=== PATIENT | female | born 1975 | race Two or more races ===

== ENCOUNTER 2020-05-22 14:14 | Emergency (ER) | payer OTHER ==
[~2020-05-22] VITALS: Ht 165.1 cm; Wt 72.6 kg
[2020-05-22] MEDS ORDERED: HYDMOR4 PO (16:03)
[2020-05-22] MEDS ORDERED: CALCIUM (16:04)
[2020-05-22] MEDS ORDERED: Inderal 20 mg T20 MG PO (16:04)
[2020-05-22] MEDS ORDERED: Methocarbamol500 MG PO (16:05)
[2020-05-22] MEDS ORDERED: INDO50 PO (16:05)
[2020-05-22] MEDS ORDERED: PROAIR RESPICL90 MCG IH (16:05)
[2020-05-22] MEDS ORDERED: Xanax2 MG PO (16:06)
[2020-05-22] MEDS ORDERED: Estradiol1 MG PO (16:06)
[2020-05-22] MEDS ORDERED: PROM25 PO (16:06)
[2020-05-22] MEDS ORDERED: DILT120 PO (16:08)
[2020-05-22] MEDS ORDERED: TRAM50 PO (16:08)
[2020-05-22] MEDS ORDERED: Hair, Skin & N1 EACH PO (16:08)
[2020-05-22] MEDS ORDERED: RIZATRIPTAN10 MG SL (16:08)
[2020-05-22] MEDS ORDERED: LEVSOD150 PO (16:08)
== END 2020-05-22 17:20 | disposition home or self-care (01) ==
LOC: ER 14:14
DX: S76.011A Strain of muscle, fascia and tendon of right hip, initial encounter (principal); F17.200 Nicotine dependence, unspecified, uncomplicated; Z88.0 Allergy status to penicillin; Z88.1 Allergy status to other antibiotic agents; Z79.4 Long term (current) use of insulin; Z79.899 Other long term (current) drug therapy; Z79.3 Long term (current) use of hormonal contraceptives
CPT/HCPCS: 73502; 99283-25

== ENCOUNTER → 2020-06-16 | Outpatient (CLI) | payer OTHER ==
[~2020-06-16] MED LIST: CALCIUM; DILT120 PO; Estradiol1 MG PO; HYDMOR4 PO; Hair, Skin & N1 EACH PO; INDO50 PO; Inderal 20 mg T20 MG PO; LEVSOD150 PO; Methocarbamol500 MG PO; PROAIR RESPICL90 MCG IH; PROM25 PO; RIZATRIPTAN10 MG SL; TRAM50 PO; Xanax2 MG PO
== END | disposition home or self-care (01) ==
LOC: LAB 20:05
DX: J02.9 Acute pharyngitis, unspecified (principal)
CPT/HCPCS: 87081; 87147

== ENCOUNTER 2021-12-28 13:15 | Emergency (ER) | payer OTHER ==
[~2021-12-28] VITALS: Ht 165.1 cm; Wt 74.8 kg
[2021-12-28 16:12] LABS: BASOPHILS ABSOLUTE AUTO 0.05 K/mm3 (0.00-0.23); BASOPHILS PERCENT AUTO 1 % (0-2); EOSINOPHILS ABSOLUTE AUTO 0.12 K/mm3 (0.00-0.68); EOSINOPHILS PERCENT AUTO 2 % (0-6); Hematocrit 43.4 % (33.0-51.0); Hemoglobin 14.6 g/dL (11.5-16.0); IMMATURE GRAN ABSOLUTE AUTO 0.04 K/mm3 (0.00-0.10); IMMATURE GRAN PERCENT AUTO 1 % (0-1); LYMPHOCYTES ABSOLUTE AUTO 3.25 K/mm3 (0.84-5.20); LYMPHOCYTES PERCENT AUTO 40 % (21-46); MONOCYTES ABSOLUTE AUTO 0.58 K/mm3 (0.16-1.47); MONOCYTES PERCENT AUTO 7 % (4-13); Mean Corpuscular HGB 30.7 pg (26.0-34.0); Mean Corpuscular HGB Conc 33.6 g/dL (31.5-36.5); Mean Corpuscular Volume 91 fL (80-100); NEUTROPHILS ABSOLUTE AUTO 4.16 K/mm3 (1.96-9.15); NEUTROPHILS PERCENT AUTO 51 % (41-73); RDW Coefficient Variation 12.4 % (11.7-14.2); RDW Standard Deviation 42.2 fL (35.1-46.3); Red Blood Cell Count 4.75 M/mm3 (3.80-5.20)
[2021-12-28 16:28] LABS: Magnesium, Blood 2.3 mg/dL (1.6-2.4)
[2021-12-28 16:37] LABS: Bun/Creatinine Ratio 16.9 (12.0-20.0); Calcium, Blood 9.4 mg/dL (8.5-10.1); Creatinine, Blood 0.65 mg/dL (0.40-1.00); Potassium, Blood 4.3 mmol/L (3.5-5.5); Thyroid Stimulating Hormone 0.31 uIU/mL (0.360-4.800)
[2021-12-28 16:59] LABS: Mean Platelet Volume 10.6 fL (9.1-12.4); Platelet Count 280 K/mm3 (150-400)
== END 2021-12-28 17:36 | disposition home or self-care (01) ==
LOC: ER 13:15
PROVIDERS: Emergency Medicine
DX: R55 Syncope and collapse (principal); S09.90XA Unspecified injury of head, initial encounter; S80.02XA Contusion of left knee, initial encounter; S70.02XA Contusion of left hip, initial encounter; E03.9 Hypothyroidism, unspecified; F17.200 Nicotine dependence, unspecified, uncomplicated; R00.1 Bradycardia, unspecified; W18.30XA Fall on same level, unspecified, initial encounter; Z79.899 Other long term (current) drug therapy
CPT/HCPCS: 70450; 73030; 73502; 80048; 83735; 84443; 85025; 85049; J1200; J1885; J2765

== ENCOUNTER → 2022-02-22 | Outpatient (CLI) | payer OTHER | END | disposition home or self-care (01) | LOC: LAB 08:56 → LAB SHORT 08:56 | DX: J35.1 Hypertrophy of tonsils (principal) | CPT/HCPCS: 87081 ==

== ENCOUNTER 2022-05-06 12:12 | Emergency (ER) | payer OTHER ==
[~2022-05-06] VITALS: Ht 165.1 cm; Wt 70.3 kg
[2022-05-06] MEDS ORDERED: PROM25 PO (13:57)
[2022-05-06] MEDS ORDERED: ZEBUTAL 50-3251 EAC1 PO (13:57)
== END 2022-05-06 15:22 | disposition home or self-care (01) ==
LOC: ER 12:12
DX: G43.909 Migraine, unspecified, not intractable, without status migrainosus (principal); R11.10 Vomiting, unspecified; F17.290 Nicotine dependence, other tobacco product, uncomplicated; Z79.899 Other long term (current) drug therapy
CPT/HCPCS: 96374; 96375; 99283-25; A9270; J1885; J2550; J7030

== ENCOUNTER → 2022-05-17 | Outpatient (CLI) | payer OTHER ==
[~2022-05-17] MED LIST changes: +ZEBUTAL 50-3251 EAC1 PO
== END | disposition home or self-care (01) ==
LOC: LAB SHORT 13:20 → LAB 13:20
DX: R35.0 Frequency of micturition (principal)
CPT/HCPCS: 87077; 87086; 87186

== ENCOUNTER 2022-06-04 04:27 | Emergency (ER) | payer OTHER ==
[2022-06-04] MEDS ORDERED: ZYRTEC10 M2 (05:14)
[2022-06-04] MEDS ORDERED: PANT20 (05:14)
[2022-06-04] MEDS ORDERED: 1/2 NS 250ml250 ML (05:14)
[2022-06-04] MEDS ORDERED: CIPR250 PO (06:38)
== END 2022-06-04 07:47 | disposition home or self-care (01) ==
DX: N30.91 Cystitis, unspecified with hematuria (principal); E03.9 Hypothyroidism, unspecified; F17.210 Nicotine dependence, cigarettes, uncomplicated; Z88.0 Allergy status to penicillin; Z88.2 Allergy status to sulfonamides; Z88.1 Allergy status to other antibiotic agents; Z79.899 Other long term (current) drug therapy

== ENCOUNTER 2022-06-30 06:49 | Emergency (ER) | payer OTHER ==
[~2022-06-30] VITALS: Ht 165.1 cm; Wt 78.0 kg
[~2022-06-30 06:49] MED LIST changes: +1/2 NS 250ml250 ML; +CIPR250 PO; +PANT20; +ZYRTEC10 M2
[2022-06-30] MEDS ORDERED: PRED20 PO (09:43)
== END 2022-06-30 10:00 | disposition home or self-care (01) ==
LOC: ER 06:49
DX: J45.901 Unspecified asthma with (acute) exacerbation (principal); J06.9 Acute upper respiratory infection, unspecified; E03.9 Hypothyroidism, unspecified; F17.200 Nicotine dependence, unspecified, uncomplicated; Z88.0 Allergy status to penicillin; Z88.2 Allergy status to sulfonamides; Z88.8 Allergy status to other drugs, medicaments and biological substances; Z88.1 Allergy status to other antibiotic agents; Z79.890 Hormone replacement therapy; Z79.899 Other long term (current) drug therapy
CPT/HCPCS: 71045; 94640; 94664; A9270; J7512

== ENCOUNTER 2022-07-02 09:55 | Emergency (ER) | payer OTHER ==
[~2022-07-02] VITALS: Ht 165.1 cm; Wt 77.1 kg
[~2022-07-02 09:55] MED LIST changes: +PRED20 PO
[2022-07-02] MEDS ORDERED: BENZ100A PO (10:35)
== END 2022-07-02 10:35 | disposition home or self-care (01) ==
LOC: ER 09:55
DX: R05.9 Cough, unspecified (principal); E03.9 Hypothyroidism, unspecified; J45.909 Unspecified asthma, uncomplicated; F17.200 Nicotine dependence, unspecified, uncomplicated; Z88.0 Allergy status to penicillin; Z88.2 Allergy status to sulfonamides; Z88.1 Allergy status to other antibiotic agents; Z88.8 Allergy status to other drugs, medicaments and biological substances; Z79.890 Hormone replacement therapy; Z79.899 Other long term (current) drug therapy; Z79.52 Long term (current) use of systemic steroids
CPT/HCPCS: 99283

== ENCOUNTER 2022-09-11 15:55 | Emergency (ER) | payer OTHER ==
[~2022-09-11] VITALS: Ht 165.1 cm; Wt 79.4 kg
[~2022-09-11 15:55] MED LIST changes: +BENZ100A PO
== END 2022-09-11 17:14 | disposition home or self-care (01) ==
LOC: ER 15:55
DX: G43.909 Migraine, unspecified, not intractable, without status migrainosus (principal); E03.9 Hypothyroidism, unspecified; F17.200 Nicotine dependence, unspecified, uncomplicated; Z79.52 Long term (current) use of systemic steroids; Z79.890 Hormone replacement therapy; Z79.899 Other long term (current) drug therapy; Z88.0 Allergy status to penicillin; Z88.2 Allergy status to sulfonamides; Z88.8 Allergy status to other drugs, medicaments and biological substances
CPT/HCPCS: 96374; 96375; 99283-25; J0780; J1200; J2405; J7030

== ENCOUNTER 2023-08-04 13:20 | Emergency (ER) | payer OTHER ==
[~2023-08-04] VITALS: Ht 165.1 cm; Wt 80.3 kg
[2023-08-04 13:38] VITALS: BP 131/83
== END 2023-08-04 14:30 | disposition home or self-care (01) ==
LOC: ER 13:20
DX: L02.411 Cutaneous abscess of right axilla (principal); Z88.0 Allergy status to penicillin; Z88.2 Allergy status to sulfonamides; Z88.1 Allergy status to other antibiotic agents; Z79.899 Other long term (current) drug therapy; G43.909 Migraine, unspecified, not intractable, without status migrainosus; E03.9 Hypothyroidism, unspecified; J45.909 Unspecified asthma, uncomplicated; F17.200 Nicotine dependence, unspecified, uncomplicated
CPT/HCPCS: 10060; 99282-25

== ENCOUNTER 2024-11-25 02:42 | Emergency (ER) | payer BC ==
[~2024-11-25 02:42] MED LIST changes: +DICL75ER PO; +ESCI20 PO; +EUTHYROX125 MCG PO; +HYDPAM50 PO; +MONT10T PO; +NURTEC ODT75 MG PO; +Norethindrone Ac5 MG PO; +PANT40 PO; +TIZA4 PO; +TOPI50 PO; -ZYRTEC10 M2; +ZYRTEC10 M2 PO
[2024-11-25 04:34] LABS: Appearance, Urine Clear (Clear); Bilirubin, Urine Neg (Neg); Blood, Urine Neg (Neg); Color, Urine Yellow (P-Yellow); Glucose Qualitative, Urine Neg (Neg); Ketones, Urine Neg (Neg); Leukocyte Esterase, Urine Neg (Neg); Nitrite, Urine Neg (Neg); Protein, Urine 1+ (Neg); Urobilinogen, Urine NORM (Normal)
[2024-11-25] MEDS ORDERED: CYCL10 PO (05:12)
[2024-11-25] MEDS ORDERED: IBU600 MG PO (05:12)
[2024-11-25 07:58] LABS: Albumin, Blood 3.5 g/dL (3.4-5.0); Albumin/Globulin Ratio 0.8 (0.8-1.8); Bilirubin, Total 0.3 mg/dL (0.1-1.0); Calcium, Blood 8.7 mg/dL (8.5-10.1); Creatinine, Blood 0.82 mg/dL (0.40-1.00); Globulin, Blood 4.3 g/dL (2.2-4.0); Potassium, Blood 3.8 mmol/L (3.5-5.5); Total Protein, Blood 7.8 g/dL (6.4-8.2)
[2024-11-25 08:00] LABS: BASOPHILS ABSOLUTE AUTO 0.05 K/mm3 (0.00-0.23); BASOPHILS PERCENT AUTO 1 % (0-2); EOSINOPHILS ABSOLUTE AUTO 0.28 K/mm3 (0.00-0.68); EOSINOPHILS PERCENT AUTO 3 % (0-6); Hematocrit 43.6 % (33.0-51.0); Hemoglobin 14.9 g/dL (11.5-16.0); IMMATURE GRAN ABSOLUTE AUTO 0.02 K/mm3 (0.00-0.10); IMMATURE GRAN PERCENT AUTO 0 % (0-1); LYMPHOCYTES ABSOLUTE AUTO 3.95 K/mm3 (0.84-5.20); LYMPHOCYTES PERCENT AUTO 43 % (21-46); MONOCYTES ABSOLUTE AUTO 0.65 K/mm3 (0.16-1.47); MONOCYTES PERCENT AUTO 7 % (4-13); Mean Corpuscular HGB 30.9 pg (26.0-34.0); Mean Corpuscular HGB Conc 34.2 g/dL (31.5-36.5); Mean Corpuscular Volume 91 fL (80-100); Mean Platelet Volume 9.9 fL (9.1-12.4); NEUTROPHILS ABSOLUTE AUTO 4.29 K/mm3 (1.96-9.15); NEUTROPHILS PERCENT AUTO 47 % (41-73); Platelet Count 318 K/mm3 (150-400); RDW Coefficient Variation 13.2 % (11.7-14.2); RDW Standard Deviation 44.4 fL (35.1-46.3); Red Blood Cell Count 4.82 M/mm3 (3.80-5.20); White Blood Cell Count 9.24 K/mm3 (4.00-11.30)
== END 2024-11-25 05:18 | disposition home or self-care (01) ==
LOC: ER 02:42
PROVIDERS: Emergency Medicine
DX: S29.011A Strain of muscle and tendon of front wall of thorax, initial encounter (principal); G43.909 Migraine, unspecified, not intractable, without status migrainosus; E03.9 Hypothyroidism, unspecified; J45.909 Unspecified asthma, uncomplicated; F17.200 Nicotine dependence, unspecified, uncomplicated; Z88.1 Allergy status to other antibiotic agents; Z88.2 Allergy status to sulfonamides; Z88.0 Allergy status to penicillin; Z88.5 Allergy status to narcotic agent; Z79.890 Hormone replacement therapy; Z79.899 Other long term (current) drug therapy; X58.XXXA Exposure to other specified factors, initial encounter
CPT/HCPCS: 71260; 74177; 80053; 83690; 84484; 85025; 99284-25; Q9967

== ENCOUNTER 2025-02-15 09:29 | Emergency (ER) | payer BC ==
[~2025-02-15] VITALS: Ht 165.1 cm; Wt 74.8 kg
[~2025-02-15 09:29] MED LIST changes: +CYCL10 PO; +IBU600 MG PO
[2025-02-15 09:49] VITALS: BP 18/99
[2025-02-15] MEDS ORDERED: Prochlorperazine Edisylate 10 mg Vial IV ONE (09:55)
[2025-02-15] MEDS ORDERED: Ketorolac Tromethamine 15mg Vial IV ONE (09:55)
[2025-02-15] MEDS ORDERED: NS 1,000 ML IV SCH (09:55)
[2025-02-15 10:03] LABS: BASOPHILS ABSOLUTE AUTO 0.06 K/mm3 (0.00-0.23); BASOPHILS PERCENT AUTO 1 % (0-2); EOSINOPHILS ABSOLUTE AUTO 0.07 K/mm3 (0.00-0.68); EOSINOPHILS PERCENT AUTO 1 % (0-6); Hematocrit 43.6 % (33.0-51.0); Hemoglobin 14.9 g/dL (11.5-16.0); IMMATURE GRAN ABSOLUTE AUTO 0.04 K/mm3 (0.00-0.10); IMMATURE GRAN PERCENT AUTO 0 % (0-1); LYMPHOCYTES ABSOLUTE AUTO 1.76 K/mm3 (0.84-5.20); LYMPHOCYTES PERCENT AUTO 15 % (21-46); MONOCYTES ABSOLUTE AUTO 0.72 K/mm3 (0.16-1.47); MONOCYTES PERCENT AUTO 6 % (4-13); Mean Corpuscular HGB Conc 34.2 g/dL (31.5-36.5); Mean Corpuscular Volume 92 fL (80-100); NEUTROPHILS ABSOLUTE AUTO 9.30 K/mm3 (1.96-9.15); NEUTROPHILS PERCENT AUTO 78 % (41-73); NRBC ABSOLUTE 0.00 K/mm3 (0.00-0.02); NRBC Auto 0.0 /100 WBC (0.0-0.2); Platelet Count 332 K/mm3 (150-400); RDW Coefficient Variation 13.1 % (11.7-14.2); RDW Standard Deviation 44.7 fL (35.1-46.3)
[2025-02-15 10:29] LABS: Alanine Aminotransfer (ALT/SGP 31.0 U/L (12-78); Albumin, Blood 3.0 g/dL (3.4-5.0); Albumin/Globulin Ratio 0.7 (0.8-1.8); Anion Gap 7.0 mmol/L (3-11); Aspartate Aminotrans (AST/SGOT 24.0 U/L (12-37); Bilirubin, Total 0.7 mg/dL (0.1-1.0); Blood Urea Nitrogen 9.0 mg/dL (8-24); CO2, Blood 27.0 mmol/L (21-32); Calcium, Blood 8.4 mg/dL (8.5-10.1); Chloride, Blood 106.0 mmol/L (98-108); Creatinine, Blood 0.75 mg/dL (0.40-1.00); Globulin, Blood 4.6 g/dL (2.2-4.0); Glucose, Blood 104.0 mg/dL (70-99); Potassium, Blood 3.4 mmol/L (3.5-5.5); Sodium, Blood 137.0 mmol/L (136-145); Total Protein, Blood 7.6 g/dL (6.4-8.2)
[2025-02-15] MEDS ORDERED: ONDA4ODT MM (11:39)
== END 2025-02-15 12:00 | disposition home or self-care (01) ==
LOC: ER 09:29
PROVIDERS: Emergency Medicine
DX: G43.909 Migraine, unspecified, not intractable, without status migrainosus (principal); R11.2 Nausea with vomiting, unspecified; E03.9 Hypothyroidism, unspecified; J45.909 Unspecified asthma, uncomplicated; F17.210 Nicotine dependence, cigarettes, uncomplicated; Z88.1 Allergy status to other antibiotic agents; Z88.0 Allergy status to penicillin; Z88.2 Allergy status to sulfonamides; Z88.5 Allergy status to narcotic agent; Z79.890 Hormone replacement therapy; Z79.899 Other long term (current) drug therapy
CPT/HCPCS: 80053; 85025; J0780; J1885; J7030

== ENCOUNTER → 2025-06-16 | Outpatient (CLI) | payer BC ==
[~2025-06-16] MED LIST changes: +ONDA4ODT MM
[2025-06-16 17:16] LABS: Bacterial Vaginosis PCR Negative (NEGATIVE); Candida Group, PCR NOT DETECTED (NOT DETECT); Candida glabrata-krusei, PCR NOT DETECTED (NOT DETECT)
== END ==
LOC: LAB SHORT 11:48 → LAB 11:48
PROVIDERS: Nurse Practitioner
DX: N30.01 Acute cystitis with hematuria (principal); R39.15 Urgency of urination; N89.8 Other specified noninflammatory disorders of vagina
CPT/HCPCS: 81515; 87077; 87086; 87186

== ENCOUNTER 2025-06-28 17:27 | Emergency (ER) | payer OTHER, BC ==
[~2025-06-28] VITALS: Ht 165.1 cm; Wt 79.4 kg
[2025-06-28] MEDS ORDERED: Ketorolac Tromethamine 30mg Vial IM ONE (18:55)
[2025-06-28 19:51] VITALS: BP 127/96
[2025-06-28] MEDS ORDERED: Lidocaine 4% 1 Patch TOP ONE (21:45)
[2025-06-28] MEDS ORDERED: Dexamethasone Sod Phos 10 MG/ML 1ML VIAL PO ONE (21:45)
== END 2025-06-28 21:55 | disposition home or self-care (01) ==
LOC: ER 17:27
DX: S89.81XA Other specified injuries of right lower leg, initial encounter (principal); S79.811A Other specified injuries of right hip, initial encounter; W10.9XXA Fall (on) (from) unspecified stairs and steps, initial encounter; M54.17 Radiculopathy, lumbosacral region; J45.909 Unspecified asthma, uncomplicated; E03.9 Hypothyroidism, unspecified; F17.210 Nicotine dependence, cigarettes, uncomplicated; Z88.1 Allergy status to other antibiotic agents; Z88.0 Allergy status to penicillin; Z88.2 Allergy status to sulfonamides; Z88.5 Allergy status to narcotic agent; Z79.899 Other long term (current) drug therapy; Z79.890 Hormone replacement therapy
CPT/HCPCS: 73502; 73562-RT; 96372; 99283-25; A9270; J1100; J1885